=== PATIENT | female | born 1985 | race Caucasian/White ===

== ENCOUNTER 2019-02-11 18:37 | Emergency (ER) | payer OTHER ==
[~2019-02-11] VITALS: Ht 157.5 cm; Wt 103.0 kg
[2019-02-11 19:15] LABS: URINE BILIRUBIN NEGATIVE (Negative); URINE BLOOD NEGATIVE (Negative); URINE CLARITY CLEAR; URINE COLOR YELLOW; URINE GLUCOSE-RANDOM NEGATIVE (Negative); URINE KETONES NEGATIVE (Negative); URINE LEUKOCYTES-REFLEX NEGATIVE (Negative); URINE NITRITE-REFLEX NEGATIVE (Negative); URINE PROTEIN TRACE (Negative); URINE SPECIFIC GRAVITY >= 1.030 (1.005-1.030); URINE UROBILINOGEN 0.2 E.U./dl (0.2-1.0)
[2019-02-11 19:31] LABS: ABSOLUTE EOSINOPHILS 0.1 thou/uL (0.0-0.7); ABSOLUTE LYMPHOCYTES 3.1 thou/uL (0.8-5.3); ABSOLUTE MONOCYTES 0.8 thou/uL (0.0-1.2); ABSOLUTE NEUTROPHILS 7.3 thou/uL (1.6-8.1); BASOPHILS 0.2 %; EOSINOPHILS 1.2 %; HEMATOCRIT 38.5 % (37.0-47.0); HEMOGLOBIN 13.3 gm/dL (12.0-15.0); LYMPHOCYTES 27.4 %; MCH 28.6 pg (26.0-34.0); MCHC 34.5 g/dL (28.0-37.0); MONOCYTES 6.8 %; MPV 6.9 fl. (7.2-11.1); NUCLEATED RBCS 0 /100WBC; PLATELET COUNT* 305 thou/uL (150-400); POLYS 64.4 %; RBC 4.64 mil/uL (4.20-5.00); RDW-CV 12.6 % (10.5-14.5); WBC 11.4 thou/uL (4.0-11.0)
[2019-02-11 19:39] LABS: CALCIUM 8.8 mg/dL (8.5-10.1); CREATININE 0.8 mg/dL (0.6-1.3); POTASSIUM 3.6 mmol/L (3.5-5.1)
[2019-02-11 19:51] LABS: ALBUMIN 3.6 g/dL (3.4-5.0); TOTAL BILIRUBIN 0.3 mg/dL (<0.1-1.0)
[2019-02-11 20:18] LABS: APTT 23.4 Seconds (25.0-31.3); PROTIME 10.5 Seconds (9.20-11.50)
[2019-02-11] MEDS ORDERED: NAPROSYN500 MG PO (21:43)
[2019-02-11] MEDS ORDERED: ONDANSETRON HCL4 M2 PO (21:43)
[2019-02-11] MEDS ORDERED: NORCO 5-325 TA1 EAC1 PO (21:43)
[2019-02-11 21:58] VITALS: BP 99/54
== END 2019-02-11 21:58 | disposition home or self-care (01) ==
LOC: M.ERS 18:37
PROVIDERS: Physician Assistant
DX: N83.201 Unspecified ovarian cyst, right side (principal); M79.661 Pain in right lower leg; R11.2 Nausea with vomiting, unspecified; Z88.1 Allergy status to other antibiotic agents; Z90.711 Acquired absence of uterus with remaining cervical stump

== ENCOUNTER 2020-01-14 07:16 | Emergency (ER) | payer OTHER ==
[~2020-01-14] VITALS: Ht 162.6 cm; Wt 97.5 kg
[~2020-01-14 07:16] MED LIST: NAPROSYN500 MG PO; NORCO 5-325 TA1 EAC1 PO; ONDANSETRON HCL4 M2 PO
[2020-01-14] MEDS ORDERED: XARELTO15 MG PO (07:23)
[2020-01-14 07:42] LABS: ABSOLUTE BASOPHILS 0.1 thou/uL (0.0-0.2); ABSOLUTE EOSINOPHILS 0.2 thou/uL (0.0-0.7); ABSOLUTE MONOCYTES 0.6 thou/uL (0.0-1.2); ABSOLUTE NEUTROPHILS 7.8 thou/uL (1.6-8.1); BASOPHILS 0.5 %; EOSINOPHILS 1.6 %; HEMATOCRIT 42.2 % (37.0-47.0); HEMOGLOBIN 14.7 gm/dL (12.0-15.0); LYMPHOCYTES 18.5 %; MCH 28.9 pg (26.0-34.0); MCHC 34.8 g/dL (28.0-37.0); MCV 82.9 fL (80.0-100.0); MONOCYTES 5.7 %; MPV 7.3 fl. (7.2-11.1); NUCLEATED RBCS 0 /100WBC; PLATELET COUNT* 282 thou/uL (150-400); POLYS 73.7 %; RBC 5.08 mil/uL (4.20-5.00); RDW-CV 13.1 % (10.5-14.5); WBC 10.6 thou/uL (4.0-11.0)
[2020-01-14 07:52] LABS: CALCIUM 8.5 mg/dL (8.5-10.1); CREATININE 0.9 mg/dL (0.6-1.3); POTASSIUM 3.5 mmol/L (3.5-5.1)
[2020-01-14 07:56] LABS: APTT 24.1 Seconds (25.0-31.3); PROTIME 10.6 Seconds (9.20-11.50)
[2020-01-14 08:07] LABS: ALBUMIN 3.6 g/dL (3.4-5.0); CK-MB MASS 0.7 ng/mL (<0.5-3.6); MAGNESIUM 1.8 mg/dL (1.8-2.4); TOTAL BILIRUBIN 0.3 mg/dL (<0.1-1.0); TOTAL PROTEIN 7.3 g/dL (6.4-8.2)
[2020-01-14 08:49] LABS: URINE BILIRUBIN NEGATIVE (Negative); URINE BLOOD TRACE (Negative); URINE CLARITY CLEAR; URINE COLOR YELLOW; URINE GLUCOSE-RANDOM NEGATIVE (Negative); URINE KETONES NEGATIVE (Negative); URINE NITRITE-REFLEX NEGATIVE (Negative); URINE PROTEIN NEGATIVE (Negative); URINE SPECIFIC GRAVITY 1.025 (1.005-1.030); URINE UROBILINOGEN 0.2 E.U./dl (0.2-1.0)
[2020-01-14 08:52] LABS: URINE LEUKOCYTES-REFLEX 2+ (Negative)
[2020-01-14 08:54] LABS: SQUAMOUS >10 Many /LPF (0-3)
[2020-01-14 08:55] LABS: BACTERIA-REFLEX >30 Many /HPF (None Seen); MUCUS 0-3 Light strn/LPF (None Seen); URINE RBC 3-10 Few /HPF (0-2); URINE WBC-REFLEX 6-15 Few /HPF (0-5)
[2020-01-14 08:56] LABS: CASTS None Seen /LPF (None Seen); CRYSTALS None Seen /LPF (None Seen)
[2020-01-14] MEDS ORDERED: NORCO 5-325 TA1 EAC2 PO (09:22)
[2020-01-14] MEDS ORDERED: MACROBID 100 M100 M1 PO (09:22)
[2020-01-14 09:53] VITALS: BP 105/67
--- NOTE | 2020-01-14 10:14 | EKG ---
[place] [address] ELECTROCARDIOGRAM REPORT Name: BESSY GABRIEL Room: [facility]#: [id number] Admission: 01/14/20 Attend Phys: Discharge: 01/14/20 Date of : 81 Date of Service: 01/14/20719 Report #: [id number] THIS REPORT FOR: //name// [facility] ED Test Date: 2020-01-14 Test Time: 07:20:12 Pat Name: BESSY GABRIEL Department: Room: Gender: Program Manager Slp: [place] : 1985 Requested By: True Smith Order Number: [id number] MD: Richard Templeton Measurements Intervals [place] Rate: 120 P: 39 AL: 141 QRS: 44 QRSD: 86 T: 21 QT: 313 QTc: 443 Interpretive Statements Sinus tachycardia Atrial premature complex Baseline wander in lead(s) II,V5 No previous ECG available for comparison Electronically Signed On 01-14-2020 10:14:11 CDT by Richard Templeton [email or web address] <ELECTRONICALLY SIGNED> By: Richard Templeton MD, [facility] 01/14/20 1014 9 9 Richard Templeton MD, [facility] /EPI
== END 2020-01-14 09:54 | disposition home or self-care (01) ==
LOC: M.ERS 07:16
PROVIDERS: Family Medicine
DX: N39.0 Urinary tract infection, site not specified (principal); M54.6 Pain in thoracic spine; Z88.1 Allergy status to other antibiotic agents; Z98.890 Other specified postprocedural states

== ENCOUNTER 2021-01-28 16:57 | Emergency (ER) | payer OTHER ==
[~2021-01-28] VITALS: Ht 160 cm; Wt 94.3 kg
[~2021-01-28 16:57] MED LIST changes: +MACROBID 100 M100 M1 PO; +NORCO 5-325 TA1 EAC2 PO; +XARELTO15 MG PO
[2021-01-28] MEDS ORDERED: EFFEXOR XR75 MG PO (17:12)
[2021-01-28] MEDS ORDERED: WELLBUTRIN XL300 MG PO (17:12)
[2021-01-28] MEDS ORDERED: TRAMADOL 50 MG50 MG PO (18:12)
[2021-01-28 18:21] VITALS: BP 115/85
== END 2021-01-28 18:21 | disposition home or self-care (01) ==
LOC: M.ERS 16:57
DX: S60.221A Contusion of right hand, initial encounter (principal); Z90.711 Acquired absence of uterus with remaining cervical stump; Z98.890 Other specified postprocedural states; Z79.1 Long term (current) use of non-steroidal anti-inflammatories (NSAID); Z79.899 Other long term (current) drug therapy; Z88.5 Allergy status to narcotic agent; Z88.1 Allergy status to other antibiotic agents; W11.XXXA Fall on and from ladder, initial encounter; Y93.89 Activity, other specified; Y92.89 Other specified places as the place of occurrence of the external cause; Y99.8 Other external cause status